=== PATIENT | female | born 2000 | race American Indian/Alaskan Native ===

== ENCOUNTER 2021-06-08 02:00 | Emergency (ER) | payer OTHER, MEDICAID ==
[2021-06-08] MEDS ORDERED: ACETAMINOPHEN 325 MG TAB PO ONE (02:48)
--- NOTE | 2021-06-08 02:50 | Emergency Department Report ---
ED Female HPI - General Chief complaint: Vaginal Bleeding Stated complaint: MISCARRIAGE Time Seen by Provider: 06/08/21 02:48 Source: patient, RN notes reviewed Mode of arrival: Ambulatory Limitations: No Limitations - History of Present Illness Initial comments: The patient was evaluated in the emergency department for symptoms described in the history of present illness. He/she was evaluated in the context of the global COVID-19 pandemic, which necessitated consideration that the patient might be at risk for infection with the virus that causes COVID-19. Institutional protocols and algorithms that pertain to the evaluation of patients at risk for COVID-19 are in a state of rapid change based on information released by regulatory bodies including the CDC and federal and state organizations. These policies and algorithms were followed during the patient's care in the emergency department. Please note that these policies, procedures and recommendations changed on a rapid basis. The patient is a 21-year-old female, who is 3, para 0, reports 3 lifetime miscarriages, presents to the ER with a recent miscarriage and complaint of miscarriage. The patient reports that she has previously been following with [facility]. The patient reports that she had a miscarriage 2 days ago. She continues to have lower abdominal cramping and scant vaginal bleeding. She has used 4 pads in the past 48 hours. No urinary symptoms. No headache, neck pain, chest pain, upper abdominal pain, lightheadedness. Has not taken anything at home for pain. Has a suprapubic and bilateral lower quadrant abdominal cramping and pain. Reports pain does not radiate anywhere. Reports she does not currently consume smoke products. MD Complaint: vaginal bleeding, other -: Gradual, days(s) Location: suprapubic Severity: mild Quality: cramping Consistency: intermittent Improves with: none Worsens with: movement Are you Now?: No Associated Symptoms: denies other symptoms - Related Data Sexually active: Yes Previous Rx's Medication Instructions Recorded Last Taken Type Acetaminophen [Non-Aspirin Extra 500 mg PO Q6HR PRN #30 tablet 06/08/21 Unknown Rx Strength] Ibuprofen [Motrin] 400 mg PO Q8H PRN #30 tablet 06/08/21 Unknown Rx Allergies Allergy/AdvReac Type Severity Reaction Status Date / Time No Known Allergies Allergy Verified 06/08/21 02:39 ED Review of Systems ROS: Stated complaint: MISCARRIAGE Other details as noted in HPI Constitutional: denies: fever Eyes: denies: eye discharge ENT: denies: epistaxis Respiratory: denies: cough Cardiovascular: denies: chest pain Gastrointestinal: abdominal pain. denies: nausea, vomiting, diarrhea Genitourinary: other (Lower abdominal cramping, vaginal bleed). denies: dysuria Musculoskeletal: denies: back pain Psychiatric: anxiety Hematological/Lymphatic: denies: easy bleeding ED Past Medical Hx - Past Medical History Previous Medical History?: No Hx Psychiatric Treatment: Yes (anxiety) - Surgical History Past Surgical History?: No - Medications Home Medications: Home Medications Medication Instructions Recorded Confirmed Last Taken Type Acetaminophen [Non-Aspirin Extra 500 mg PO Q6HR PRN #30 tablet 06/08/21 Unknown Rx Strength] Ibuprofen [Motrin] 400 mg PO Q8H PRN #30 tablet 06/08/21 Unknown Rx ED Physical Exam - General Limitations: No Limitations General appearance: alert, in no apparent distress - Head Head exam: Present: atraumatic, normocephalic - Eye Eye exam: Present: normal appearance, EOMI. Absent: nystagmus - ENT ENT exam: Present: normal exam, normal orophraynx, mucous membranes moist, norm al external ear exam - Neck Neck exam: Present: normal inspection, full ROM. Absent: tenderness, meningismus - Respiratory Respiratory exam: Present: normal lung sounds bilaterally. Absent: respiratory distress, wheezes, rales, rhonchi, stridor, decreased breath sounds - Cardiovascular Cardiovascular Exam: Present: regular rate, normal rhythm, normal heart sounds. Absent: bradycardia, tachycardia, irregular rhythm, systolic murmur, diastolic murmur, rubs, gallop - GI/Abdominal GI/Abdominal exam: Present: soft. Absent: distended, tenderness, guarding, rebound, rigid, pulsatile mass - External exam: Present: normal external exam, bleeding (Minimal external bleeding), other (Patient provided verbal consent for external gynecologic examination. Chaperoned by [employer]er Ashli). Absent: erythema, swelling, lesions, lacerations, ecchymosis - Extremities Exam Extremities exam: Present: normal inspection, full ROM, other (2+ pulses noted in the bilateral upper and lower extremities. There is no palpable cord. negative Homans sign. Muscular compartments are soft. The pelvis is stable.). Absent: calf tenderness - Back Exam Back exam: Present: normal inspection, full ROM. Absent: tenderness, CVA tender ness (R), CVA tenderness (L), paraspinal tenderness, vertebral tenderness - Neurological Exam Neurological exam: Present: alert, oriented X3, normal gait, other (No facial droop. Tongue midline. Extraocular movements intact bilaterally. Facial sensation intact to light touch in V1, V2, V3 distribution bilaterally. 5 and a 5 strength in 4 extremities. Sensation intact to light touch in 4 extremities.). Absent: motor sensory deficit - Psychiatric Psychiatric exam: Present: normal affect, normal mood - Skin Skin exam: Present: warm, dry, intact, normal color. Absent: rash ED Course Vital Signs 06/08/21 06/08/21 02:36 03:24 Temperature 98.9 F Pulse Rate 99 H Respiratory 17 14 Rate Blood Pressure 116/64 O2 Sat by Pulse 100 Oximetry - Reevaluation(s) Reevaluation #1: 06/08/21 04:31 Differential diagnosis, including but not limited to: Miscarriage, retained products of conception Ectopic Assessment and plan: 21-year-old female, who is 3, para 0, who presents with 3 life time miscarriages, presenting to the ER with a probable miscarriage. On my initial assessment, she is afebrile, with reassuring vital signs, with no abdominal tenderness, rebound or guarding, and only scant gynecologic bleeding. Laboratory studies reviewed and appreciated. Patient denies urinary symptoms. Ultrasound pending interpretation. Patient Rh+. 06/08/21 04:47 Laboratory studies unremarkable. Patient denies irritative and obstructive urinary symptoms. Ultrasound with no emergent findings. Discharged with pain medication, pelvic rest, follow-up in 2 days for repeat checkup and evaluation. Return precautions reviewed. ED Medical Decision Making - Lab Data Result diagrams: 06/08/21 02:56 Vital Signs 06/08/21 06/08/21 02:36 03:24 Temperature 98.9 F Pulse Rate 99 H Respiratory 17 14 Rate Blood Pressure 116/64 O2 Sat by Pulse 100 Oximetry Lab Results 06/08/21 06/08/21 06/08/21 Range/Units 02:56 02:56 02:56 WBC 8.4 (4.5-11.0) K/mm3 RBC 3.11 L (3.65-5.03) M/mm3 Hgb 9.5 L (10.1-14.3) gm/dl Hct 28.6 L (30.3-42.9) % MCV 92 (79-97) fl MCH 31 (28-32) pg MCHC 33 (30-34) % RDW 14.1 (13.2-15.2) % Plt Count 206 (140-440) K/mm3 Lymph % (Auto) 29.2 (13.4-35.0) % [place] % (Auto) 8.8 H (0.0-7.3) % Eos % (Auto) 1.4 (0.0-4.3) % Baso % (Auto) 0.1 (0.0-1.8) % Lymph # (Auto) 2.4 (1.2-5.4) K/mm3 [place] # (Auto) 0.7 (0.0-0.8) K/mm3 Eos # (Auto) 0.1 (0.0-0.4) K/mm3 Baso # (Auto) 0.0 (0.0-0.1) K/mm3 Seg Neutrophils % 60.5 (40.0-70.0) % Seg Neutrophils # 5.1 (1.8-7.7) K/mm3 HCG, Quant 1427 H (0-4) mIU/mL Blood Type B POSITIVE Antibody Screen Negative - Radiology Data Radiology results: pending, report reviewed, image reviewed Pelvic Ultrasound HISTORY: Lower abdominal cramping with vaginal bleeding. TECHNIQUE: Grayscale and color imaging performed. COMPARISON: None FINDINGS: Uterus measures 8.3 x 5.0 x 5.8 cm with endometrial echocomplex measuring 1.8 cm. Both ovaries appear unremarkable. No IUP identified. No free fluid. IMPRESSION: No acute abnormality identified. Signer Name: Eleuterio Cuevas MD Signed: 06/08/2021 3:39 AM Workstation Name: [id number] Critical care attestation.: If time is entered above; I have spent that time in minutes in the direct care of this critically ill patient, excluding procedure time. ED Disposition Clinical Impression: Elevated serum hCG, History of miscarriage Disposition: HOME / SELF CARE / HOMELESS Is pt being admited?: No Does the pt Need Aspirin: No Condition: Good Instructions: Miscarriage, Tlrl-la-Oply Additional Instructions: Patient had an ultrasound today, which did not demonstrate intrauterine or extrauterine . Patient had a positive hCG, without prior for comparison. We suspect that the patient had a complete miscarriage. However, the patient needs to follow-up in 2 days for repeat quantitative hCG / blood test, physical examination, and ultrasound. The patient may return to this emergency room, will follow-up with her private [facility] doctor. The patient may take the prescribed pain medications as needed and directed. The patient should rest and avoid heavy lifting as well as strenuous physical activity. The patient should [place] not engage in any sexual activity until cleared to participate by her outpatient [facility] physician. Please return to the emergency room right away with new pain, worsened pain, migration of pain, projectile vomiting, change in mental status, confusion, inability tolerate liquid feeds, new, worsened or different symptoms not present on the initial emergency room evaluation Return right away with any bleeding more than 2-3 pads soaked per hour, lightheadedness, or loss of consciousness. Prescriptions: Ibuprofen [Motrin] 400 mg PO Q8H PRN #30 tablet PRN Reason: Pain Acetaminophen [Non-Aspirin Extra Strength] 500 mg PO Q6HR PRN #30 tablet PRN Reason: Pain , Severe (7-10) Referrals: [facility] [Provider Group] - 3-5 Days Forms: Work/School Release Form(ED)
[2021-06-08 03:24] LABS: Basophils % (Auto) 0.1 % (0.0-1.8); Eosinophils # (Auto) 0.1 K/mm3 (0.0-0.4); Eosinophils % (Auto) 1.4 % (0.0-4.3); Hematocrit 28.6 % (30.3-42.9); Hemoglobin 9.5 gm/dl (10.1-14.3); Lymphocytes # (Auto) 2.4 K/mm3 (1.2-5.4); Lymphocytes % (Auto) 29.2 % (13.4-35.0); Mean Corpuscular HGB Conc 33 % (30-34); Mean Corpuscular Volume 92 fl (79-97); Monocytes # (Auto) 0.7 K/mm3 (0.0-0.8); Monocytes % (Auto) 8.8 % (0.0-7.3); Platelet Count 206 K/mm3 (140-440); Red Blood Count 3.11 M/mm3 (3.65-5.03); Red Cell Distribution Width 14.1 % (13.2-15.2)
--- NOTE | 2021-06-08 04:44 | Ultrasound Report ---
Pelvic Ultrasound HISTORY: Lower abdominal cramping with vaginal bleeding. TECHNIQUE: Grayscale and color imaging performed. COMPARISON: None FINDINGS: Uterus measures 8.3 x 5.0 x 5.8 cm with endometrial echocomplex measuring 1.8 cm. Both ovar ies appear unremarkable. No IUP identified. No free fluid. IMPRESSION: No acute abnormality identified. Signer Name: Eleuterio Cuevas MD Signed: 06/08/2021 4:39 AM Workstation Name: [id number]
[2021-06-08] MEDS ORDERED: IBUPROFEN 400 MG TAB PO ONE (04:47)
[2021-06-08 05:38] VITALS: BP 116/60
== END 2021-06-08 05:38 | disposition home or self-care (01) ==
LOC: ED 02:00
DX: R89.1 Abnormal level of hormones in specimens from other organs, systems and tissues (principal); Z87.59 Personal history of other complications of pregnancy, childbirth and the puerperium
CPT/HCPCS: 36415; 76801; 76817; 84702; 85025; 86850; 86900; 86901; 99284